=== PATIENT | male | born 1995 | race Caucasian/White ===

== ENCOUNTER 2018-07-27 17:41 | Emergency (ER) | payer OTHER ==
[~2018-07-27] VITALS: Ht 188 cm; Wt 140.2 kg
[2018-07-27 18:07] VITALS: Ht 188 cm; Wt 140.2 kg
[2018-07-27 19:25] VITALS: BP 121/72
== END 2018-07-27 19:25 | disposition home or self-care (01) ==
LOC: ED 17:41
DX: L03.113 Cellulitis of right upper limb (principal); L73.8 Other specified follicular disorders